=== PATIENT | female | born 1995 | race Caucasian/White ===

== ENCOUNTER 2019-04-18 12:37 | Emergency (ER) | payer BC ==
--- NOTE | 2019-04-18 13:19 | EDM.PDOC ---
ED HPI GENERAL MEDICAL PROBLEM - General Chief Complaint: Genitourinary Problem Stated Complaint: LOWER LEFT ABD PAIN Time Seen by Provider: 04/18/19 12:38 Source of Information: Reports: Patient History Limitations: Reports: No Limitations - History of Present Illness INITIAL COMMENTS - FREE TEXT/NARRATIVE: started last night pain into the lower abdomen to the left lower quadrant. Last BM yesterday Feels like she cant go to the bathroom, minimal out put Hasn't been drinking as much water as she normally does Duration: Day(s): (1) Location: Reports: Abdomen Quality: Reports: Pressure Improves with: Reports: None Worsens with: Reports: None Associated Symptoms: Reports: Nausea/Vomiting - Related Data Allergies Allergy/AdvReac Type Severity Reaction Status Date / Time No Known Allergies Allergy Verified 04/18/19 12:56 Social & Family History - Tobacco Use Smoking Status *Q: Never Smoker - Caffeine Use Caffeine Use: Reports: Coffee - Recreational Drug Use Recreational Drug Use: No ED ROS GENERAL - Review of Systems Review Of Systems: See Below Constitutional: Reports: Chills, Decreased Appetite Respiratory: Reports: No Symptoms Cardiovascular: Reports: No Symptoms GI/Abdominal: Reports: Abdominal Pain, Nausea : Reports: Flank Pain, Urinary Retention Musculoskeletal: Reports: No Symptoms Skin: Reports: No Symptoms Neurological: Reports: No Symptoms Psychiatric: Reports: No Symptoms ED EXAM, GENERAL - Physical Exam Exam: See Below General Appearance: Alert, WD/WN, No Apparent Distress Head: Atraumatic, Normocephalic Neck: Normal Inspection, Supple, Non-Tender, Full Range of Motion Respiratory/Chest: No Respiratory Distress, Lungs Clear, Normal Breath Sounds, No Accessory Muscle Use, Chest Non-Tender Cardiovascular: Normal Peripheral Pulses, Regular Rate, Rhythm GI/Abdominal: Normal Bowel Sounds, Soft, Tender, Other Back Exam: Full Range of Motion Extremities: Normal Inspection, Normal Range of Motion Neurological: Alert, Oriented, CN II-XII Intact Psychiatric: Normal Affect, Normal Mood Skin Exam: Warm, Dry, Intact, Normal Color, No Rash Course - Vital Signs Last Recorded V/S: Last Vital Signs Temp 98.8 F 04/18/19 12:59 Pulse 81 04/18/19 12:59 Resp 16 04/18/19 12:59 BP 111/72 04/18/19 12:59 Pulse Ox 98 04/18/19 12:59 - Orders/Labs/Meds Orders: Active Orders 24 hr Category Date Time Status Peripheral IV Care [RC] . DIRECTED Care 04/18/19 14:16 Active Peripheral IV Insertion Adult [OM.PC] Stat Oth 04/18/19 14:16 Ordered Labs: Laboratory Tests 04/18/19 04/18/19 Range/Units 13:38 13:38 Urine Color Yellow Urine Appearance Cloudy Urine pH 6.5 (4.5-8.0) Ur Specific [place] 1.030 (1.008-1.030) Urine Protein Trace (NEGATIVE) mg/dL Urine Glucose (UA) Normal (NEGATIVE) mg/dL Urine Ketones 150 H (NEGATIVE) mg/dL Urine Occult Blood Large (NEGATIVE) Urine Nitrite Negative (NEGATIVE) Urine Bilirubin Negative (NEGATIVE) Urine Urobilinogen Normal (NORMAL) mg/dL Ur Leukocyte Esterase Negative (NEGATIVE) Urine RBC Packed H (0-5) Urine WBC 0-5 (0-5) Ur Epithelial Cells Few Amorphous Sediment Not seen Urine Bacteria Few Urine Mucus Not seen Urine HCG, Qual Negative Meds: Medications Discontinued Medications Generic Name Dose Route Start Last Admin Trade Name Freq PRN Reason Stop Dose Admin Sodium Chloride 1,000 mls @ 1,000 mls/hr 04/18/19 14:15 04/18/19 14:30 Normal Saline IV 1,000 mls/hr ASDIRECTED ELISA Administration Sodium Chloride 1,000 mls @ 1,000 mls/hr 04/18/19 16:15 04/18/19 16:13 Normal Saline IV 1,000 mls/hr ASDIRECTED ELISA Administration Ketorolac Tromethamine 30 mg 04/18/19 14:16 04/18/19 14:30 Toradol IVPUSH 04/18/19 14:17 30 mg ONETIME ONE Administration Ketorolac Tromethamine 30 mg 04/18/19 17:47 04/18/19 17:55 Toradol IVPUSH 04/18/19 17:48 30 mg ONETIME ONE Administration Ondansetron HCl 8 mg 04/18/19 14:16 04/18/19 14:31 Zofran IVPUSH 04/18/19 14:17 4 mg ONETIME ONE Administration Sodium Chloride 10 ml 04/18/19 14:16 04/18/19 14:32 Saline Flush FLUSH 10 ml ASDIRECTED PRN Administration Keep Vein Open - Radiology Interpretation CT Results Date: 04/18/19 CT Results Time: 17:00 - Re-Assessments/Exams Free Text/Narrative Re-Assessment/Exam: 04/18/19 14:30 patient isn't able to leave much of a urine sample She started to feel sick, gagging. Complaining of abdominal pain; Decided to move her to a room where we could give her IVF, zofran and toradol. She is feeling a bit better. Free Text/Narrative Re-Assessment/Exam: 04/18/19 16:13 Urine shows ketones. RBC's however she has her menses. Will get CT of abdomen/Pelvis. 04/18/19 18:[address] with family; will treat as kidney stone. Departure - Departure Time of Disposition: 17:47 Disposition: Home, Self-Care 01 Condition: Good Clinical Impression: Kidney stone, Kidney stone Clinical Impression: (Ruled Out): UTI (urinary tract infection) - Discharge Information *PRESCRIPTION DRUG MONITORING PROGRAM REVIEWED*: Not Applicable *COPY OF PRESCRIPTION DRUG MONITORING REPORT IN PATIENT LINUS: Not Applicable Instructions: Kidney Stones, [id number] Referrals: PCP,None [Primary Care Provider] - Forms: ED Department Discharge Additional Instructions: Drink plenty of fluids Tylenol/ibuprofen for pain/fever/body aches Follow up with your doctor next week Return to ER is symptoms worsen Call with questions. - Problem List & Annotations (1) Kidney stone SNOMED Code(s): 77784452 Code(s): N20.0 - CALCULUS OF KIDNEY Status: Acute Priority: Medium - My Orders Last 24 Hours: My Active Orders 04/18/19 14:16 Peripheral IV Care [RC] . DIRECTED Peripheral IV Insertion Adult [OM.PC] Stat - Assessment/Plan Last 24 Hours: My Active Orders 04/18/19 14:16 Peripheral IV Care [RC] . DIRECTED Peripheral IV Insertion Adult [OM.PC] Stat
[2019-04-18] MEDS ORDERED: Sodium Chloride 0.9% 1,000 ML IV SCH ×2 (14:15→16:15)
[2019-04-18] MEDS ORDERED: Sodium Chloride 0.9% 10 ML Syringe FLUSH PRN (14:16)
[2019-04-18] MEDS ORDERED: Ondansetron 4 MG/2 ML SDV IVPUSH ONE (14:16)
[2019-04-18] MEDS ORDERED: Ketorolac 30 MG/ML SDV IVPUSH ONE ×2 (14:16→17:47)
--- NOTE | 2019-04-18 17:41 | CRLCT ---
INDICATION: Left flank pain. TECHNIQUE: CT abdomen and pelvis without contrast. COMPARISON: None FINDINGS: Lower chest: Unremarkable. Liver: Unremarkable. Spleen: Unremarkable. Pancreas: Unremarkable. Gallbladder and bile ducts: Unremarkable. Kidneys: Expansion and low attenuation edematous appearance of the left kidney with perinephric stranding and moderate hydronephrosis and hydroureter extending to urinary bladder without discrete filling defect. 2 mm nonobstructing calculus midpole right kidney. Tiny 1 millimeter developing calculus lower pole left kidney. Small cyst left kidney inferior margin. No filling defects in the urinary bladder. Adrenal glands: Unremarkable. GI tract: Unremarkable. Appendix is normal. Vascular structures: Unremarkable. Lymph nodes: Unremarkable. Miscellaneous: Unremarkable. No free air or significant free fluid. Pelvic Organs: Unremarkable. Leftward deviated anteverted uterus. Bones: Unremarkable for age. IMPRESSION: Residual obstructive pain uropathy, hydronephrosis and hydroureter left kidney from apparent recently passed nephrolithiasis. Tiny benign nonobstructing calculi in each kidney. Ureteral stricture at the UVJ is a less likely etiology. Please note that all CT scans at this facility use dose modulation, iterative reconstruction, and/or weight-based dosing when appropriate to reduce radiation dose to as low as reasonably achievable. Dictated by Jean Claude Nunes MD @ Apr 18 2019 5:36PM Signed by Dr. Jean Claude Nunes @ Apr 18 2019 5:40PM
== END 2019-04-18 18:06 | disposition home or self-care (01) ==
LOC: JP.ED 12:37
DX: N13.2 Hydronephrosis with renal and ureteral calculous obstruction (principal)
CPT/HCPCS: 74176; 81001; 81025; 96361; 96374; 96375; 96376; 99284; J1885; J2405; J7030